=== PATIENT | female | born 1965 | race African-American/Black ===

== ENCOUNTER 2016-07-22 20:31 | Emergency (ER) | payer OTHER ==
[~2016-07-22] VITALS: Ht 152.4 cm; Wt 54.0 kg
[2016-07-22 22:03] VITALS: BP 167/92
== END 2016-07-22 22:47 | disposition home or self-care (01) ==
LOC: EDSEX 20:31 → ER 20:31
DX: I10 Essential (primary) hypertension (principal); Z76.0 Encounter for issue of repeat prescription